=== PATIENT | male | born 1980 | race Caucasian/White ===

== ENCOUNTER 2016-12-10 15:34 | Emergency (ER) | payer MEDICAID, OTHER ==
[2016-12-10] MEDS ORDERED: Fluorescein Sodium TOPICAL* 1 MG TEST OPHTHALMIC ONE (15:37)
[2016-12-10] MEDS ORDERED: Tetracaine 0.5% OPTH.SOL 4 ML* 1 DROP BTL LEFT EYE ONE (15:38)
[2016-12-10 15:43] VITALS: BP 146/78
[2016-12-10] MEDS ORDERED: Tetan/Diph/Pertus SYR(Tdap)* 0.5 ML SYR(BOOSTRIX) use SYR IM ONE (16:07)
--- NOTE | 2016-12-24 22:01 | UC ---
Eye Complaint HPI - HPI Summary HPI Summary: 36 year old male presents with complains of getting a piece of plastic in his left eye. - History of Current Complaint Chief Complaint: UCEye Stated Complaint: FOREIGN BODY LEFT EYE Time Seen by Provider: 12/10/16 15:37 Hx Obtained From: Patient Onset/Duration: Sudden Onset Severity Initially: Moderate Severity Currently: Moderate Pain Intensity: 2 Pain Scale Used: 0-10 Numeric - 5 - Allergies/Home Medications Allergies/Adverse Reactions: Allergies Allergy/AdvReac Type Severity Reaction Status Date / Time No Known Allergies Allergy Verified 12/10/16 20:02 PMH/Surg Hx/FS Hx/Imm Hx Previously Healthy: Yes - Surgical History Surgical History: Yes Surgery Procedure, Year, and Place: LEFT FOOT SURGERY, METAL KARLOS, PLATE AND SCREWS. 2008, [facility] - Social History Alcohol Use: Rare Substance Use Type: Marijuana Smoking Status (MU): Heavy Every Day Tobacco Smoker Type: Cigarettes Amount Used/How Often: 1/2 - 1 PPD Length of Time of Smoking/Using Tobacco: 20 Years Have You Smoked in the Last Year: Yes Household Exposure Type: Cigarettes - Immunization History Most Recent Influenza Vaccination: Not the Season Review of Systems Constitutional: Negative Skin: Negative Eyes: Eye Redness ENT: Negative Respiratory: Negative Cardiovascular: Negative Gastrointestinal: Negative Genitourinary: Negative Motor: Negative Neurovascular: Negative Musculoskeletal: Negative Neurological: Negative Psychological: Negative All Other Systems Reviewed And Are Negative: Yes Physical Exam Triage Information Reviewed: Yes Appearance: Well-Appearing Vital Signs: Initial Vital Signs Temp 36.8 C 12/10/16 15:36 Pulse 71 12/10/16 15:36 Resp 16 12/10/16 15:36 BP 146/78 12/10/16 15:36 Pulse Ox 98 12/10/16 15:36 Vital Signs Reviewed: Yes Eyes: Positive: Conjunctiva Inflamed, Discharge ENT Exam: Normal Dental Exam: Normal Neck exam: Normal Neck: Positive: 1 Respiratory Exam: Normal Cardiovascular Exam: Normal Abdominal Exam: Normal Musculoskeletal Exam: Normal Neurological Exam: Normal Psychological Exam: Normal Skin Exam: Normal Procedures - Eye Procedure Alcaine Drops Administered: Yes - tetracaine Eye FB Removal: removal w/ needle Eye Irrigated w/ Saline (ccs): 30 - removal of a piece of plastic from left eye Antibiotic Ointment/Drps Admin: left eye - outpatient rx Eye Complaint Course/Dx - Differential Dx/Diagnosis Differential Diagnosis/HQI/PQRI: Foreign Body Provider Diagnoses: left eye foreign body removal Discharge - Discharge Plan Condition: Stable Disposition: HOME Prescriptions: Amoxicillin PO (*) [Amoxicillin 875 MG (*)] 875 mg PO BID #20 tab Ciprofloxacin 0.3% OPTH.MYRNA* [Cipro 0.3% Opth*] 2 drop LEFT EYE Q4H #1 btl Patient Education Materials: Corneal Abrasion (ED), Eye Foreign Body (ED) Referrals: Bruce Jurado MD [Medical Doctor] - No Primary Care Phys,NOPCP [Medical Doctor] -
== END 2016-12-10 16:25 | disposition home or self-care (01) ==
LOC: UCCORT 15:34
DX: T15.12XA Foreign body in conjunctival sac, left eye, initial encounter (principal); X58.XXXA Exposure to other specified factors, initial encounter; Y93.9 Activity, unspecified; Y92.9 Unspecified place or not applicable; Z23 Encounter for immunization; F12.90 Cannabis use, unspecified, uncomplicated; F17.210 Nicotine dependence, cigarettes, uncomplicated
CPT/HCPCS: 67938; 90471; 90715; 99212; A9270-GY; G0463

== ENCOUNTER 2016-12-10 19:50 | Emergency (ER) | payer OTHER ==
[2016-12-10] MEDS ORDERED: predniSONE TAB* 20 MG PO ONE (19:57)
[2016-12-10 20:02] VITALS: BP 146/77
--- NOTE | 2016-12-10 20:04 | UC ---
Eye Complaint HPI - HPI Summary HPI Summary: 36 YEAR OLD GENTLEMAN RETURNS WITH COMPLAINS OF POSSIBLE A PIECE OF FOREIGN BODY REMAINING IN HIS EYE AFTER WE TOOK OUT A PIECE OF PLASTIC ATTACHED TO HIS LEFT CORNEA. THE EYE WAS EXAMINED IMMEDIATELY AND GPC WAS SEEN ON HIS UPPER LEFT EYELID . - History of Current Complaint Chief Complaint: UCEye Stated Complaint: FOREIGN BODY LEFT EYE Time Seen by Provider: 12/10/16 20:03 Hx Obtained From: Patient Onset/Duration: Sudden Onset Timing: Constant Severity Initially: Moderate Severity Currently: Moderate Pain Scale Used: 0-10 Numeric - 1 - Allergies/Home Medications Allergies/Adverse Reactions: Allergies Allergy/AdvReac Type Severity Reaction Status Date / Time No Known Allergies Allergy Verified 12/10/16 20:02 PMH/Surg Hx/FS Hx/Imm Hx Previously Healthy: Yes - Surgical History Surgical History: Yes Surgery Procedure, Year, and Place: LEFT FOOT SURGERY, METAL KARLOS, PLATE AND SCREWS. 2008, [facility] - Social History Alcohol Use: Rare Substance Use Type: Marijuana Smoking Status (MU): Heavy Every Day Tobacco Smoker Type: Cigarettes Amount Used/How Often: 1/2 - 1 PPD Length of Time of Smoking/Using Tobacco: 20 Years Have You Smoked in the Last Year: Yes Household Exposure Type: Cigarettes - Immunization History Most Recent Influenza Vaccination: Not the 2014/2015 Season Review of Systems Constitutional: Negative Skin: Negative Eyes: Drainage, Eye Redness, Other - LEFT UPPER EYELID GPC ENT: Negative Respiratory: Negative Cardiovascular: Negative Gastrointestinal: Negative Genitourinary: Negative Motor: Negative Neurovascular: Negative Musculoskeletal: Negative Neurological: Negative Psychological: Negative All Other Systems Reviewed And Are Negative: Yes Physical Exam Triage Information Reviewed: Yes Vital Signs: Initial Vital Signs Temp 36.4 C 12/10/16 19:54 Pulse 68 12/10/16 19:54 Resp 16 12/10/16 19:54 BP 146/77 12/10/16 19:54 Pulse Ox 98 12/10/16 19:54 Vital Signs Reviewed: Yes Eyes: Positive: Conjunctiva Inflamed, Other: - LEFT UPPER EYELID GPC ENT Exam: Normal Dental Exam: Normal Neck exam: Normal Neck: Positive: 1 Respiratory Exam: Normal Cardiovascular Exam: Normal Abdominal Exam: Normal Musculoskeletal Exam: Normal Neurological Exam: Normal Psychological Exam: Normal Skin Exam: Normal Eye Complaint Course/Dx - Course Course Of Treatment: PIECE OF PLASTIC WAS REMOVED FROM HIS LEFT EYE EALIER. PATIENT FELT LIKE SOME PLASTIC MAY BE STILL IN HIS EYE BUT ON EXAMINATION THE FOREIGN BODY SENSATION WAS SECONDARY TO GPC. THE SENSATION WAS REPLICATED IN THE IDENTICAL SPOT ON HIS LEFT UPPER EYELID. - Differential Dx/Diagnosis Provider Diagnoses: LEFT UPPER EYELID GPC Discharge - Discharge Plan Condition: Stable Disposition: HOME Prescriptions: Methylprednisolone [Medrol Dosepak 4 MG*] 4 mg PO .SEE RICKY INSTRUCTION #21 tab Patient Education Materials: Conjunctivitis (ED) Referrals: WOODY Mcdonald [Primary Care Provider] -
== END 2016-12-10 20:09 | disposition home or self-care (01) ==
LOC: UCCORT 19:50
DX: H10.412 Chronic giant papillary conjunctivitis, left eye (principal); F17.210 Nicotine dependence, cigarettes, uncomplicated
CPT/HCPCS: 99212; G0463; J7512

== ENCOUNTER 2017-03-06 12:10 | Emergency (ER) | payer OTHER ==
[2017-03-06 13:00] VITALS: BP 121/60
--- NOTE | 2017-03-06 14:07 | UC ---
Throat Pain/Nasal Esteban HPI - HPI Summary HPI Summary: 36 yo male with mild sore throat since this AM no f/c no uri symptoms hx tonsillectomy - History of Current Complaint Chief Complaint: UCGeneralIllness Stated Complaint: SORE THROAT Time Seen by Provider: 03/06/17 13:31 Hx Obtained From: Patient Onset/Duration: Gradual Onset, Lasting Hours Severity: Mild Pain Intensity: 2 Pain Scale Used: 0-10 Numeric Cough: None Associated Signs & Symptoms: Positive: Negative Related History: Smoking, Prior ENT Surgery, T & A - Allergies/Home Medications Allergies/Adverse Reactions: Allergies Allergy/AdvReac Type Severity Reaction Status Date / Time No Known Allergies Allergy Verified 03/06/17 13:00 Home Medications: Home Medications NK [No Home Medications Reported] 03/06/17 [History Confirmed 03/06/17] PMH/Surg Hx/FS Hx/Imm Hx Previously Healthy: Yes - Surgical History Surgical History: Yes Surgery Procedure, Year, and Place: LEFT FOOT SURGERY, METAL KARLOS, PLATE AND SCREWS. [facility], [facility] - Family History Known Family History: Positive: Cardiac Disease Negative: Hypertension, Diabetes - Social History Alcohol Use: Rare Substance Use Type: Marijuana Smoking Status (MU): Heavy Every Day Tobacco Smoker Type: Cigarettes Amount Used/How Often: 1/2 - 1 PPD Length of Time of Smoking/Using Tobacco: 20 Years Have You Smoked in the Last Year: Yes Household Exposure Type: Cigarettes Cessation Counseling: Patient Advised to Stop - Immunization History Most Recent Influenza Vaccination: Not the Season Review of Systems Constitutional: Negative Skin: Negative Eyes: Negative ENT: Sore Throat Respiratory: Negative Cardiovascular: Negative Gastrointestinal: Negative Genitourinary: Negative Motor: Negative Neurovascular: Negative Musculoskeletal: Negative Neurological: Negative Psychological: Negative Is Patient Immunocompromised?: No All Other Systems Reviewed And Are Negative: Yes Physical Exam Triage Information Reviewed: Yes Appearance: Well-Appearing, No Pain Distress, Well-Nourished Vital Signs: Initial Vital Signs Temp 97.9 F 03/06/17 12:57 Pulse 65 03/06/17 12:57 Resp 14 03/06/17 12:57 BP 121/60 03/06/17 12:57 Pulse Ox 97 03/06/17 12:57 Vital Signs Reviewed: Yes Eyes: Positive: Conjunctiva Clear ENT: Positive: Hearing grossly normal, Pharyngeal erythema, TMs normal, Uvula midline. Negative: Nasal congestion, Nasal drainage, Tonsillar swelling, Tonsillar exudate, Trismus, Muffled voice, Hoarse voice, Dental tenderness, Sinus tenderness Neck: Positive: Supple, Nontender Respiratory: Positive: No respiratory distress, No accessory muscle use, Wheezing - slight Cardiovascular: Positive: RRR, No Murmur Diagnostics - Laboratory Diagnostic Studies Completed/Ordered: strep (-) Throat Pain/Nasal Course/Dx - Differential Dx/Diagnosis Provider Diagnoses: pharyngitis. tobacco use Discharge - Discharge Plan Condition: Stable Disposition: HOME Patient Education Materials: Pharyngitis (ED) Referrals: WOODY Mcdonald [Primary Care Provider] - If Needed Additional Instructions: strep test negative recheck for new symptoms or if not better in 4 days
== END 2017-03-06 14:09 | disposition home or self-care (01) ==
LOC: UCCORT 12:10
DX: J02.9 Acute pharyngitis, unspecified (principal); Z72.0 Tobacco use
CPT/HCPCS: 87651; 99211; G0463

== ENCOUNTER 2017-09-04 11:06 | Emergency (ER) | payer OTHER ==
[2017-09-04 11:31] VITALS: BP 136/77
--- NOTE | 2017-09-04 12:25 | UC ---
UC Dental HPI - HPI Summary HPI Summary: Patient had a transient episode of right ear pain that radiated into his jaw yesterday. Seems to be resolved today but his family was concerned because of past history is with dental infections and wanted to get checked. - History of Current Complaint Hx Obtained From: Patient Onset/Duration: Sudden Onset, Resolved Aggravating Factor(s): Nothing Alleviating Factor(s): Nothing <Veena Herbert - Last Filed: 09/04/17 12:27> <Kyleigh Weldon - Last Filed: 09/04/17 12:39> - History of Current Complaint Chief Complaint: UCDentalProblem Stated Complaint: DENTAL PAIN Time Seen by Provider: 09/04/17 12:14 - Allergies/Home Medications Allergies/Adverse Reactions: Allergies Allergy/AdvReac Type Severity Reaction Status Date / Time No Known Allergies Allergy Verified 09/04/17 11:28 Home Medications: Home Medications Ibuprofen TAB* [Advil TAB*] 1,000 mg PO Q8H PRN 09/04/17 [History Confirmed 03/24] Multivitamins/Minerals TAB* [Theragran/minerals TAB*] 1 tab PO DAILY 09/04/17 [ History Confirmed 09/04/17] PMH/Surg Hx/FS Hx/Imm Hx Previously Healthy: Yes - Surgical History Surgical History: Yes Surgery Procedure, Year, and Place: LEFT FOOT SURGERY, METAL KARLOS, PLATE AND SCREWS. 2008, [facility] - Family History Known Family History: Positive: Cardiac Disease Negative: Hypertension, Diabetes - Social History Occupation: Employed Full-time Lives: With Family Alcohol Use: Rare Substance Use Type: Marijuana Substance Use Comment - Amount & Last Used: occasional Smoking Status (MU): Heavy Every Day Tobacco Smoker Type: Cigarettes Amount Used/How Often: 1/2 - 1 PPD Length of Time of Smoking/Using Tobacco: 20 Years Have You Smoked in the Last Year: Yes Household Exposure Type: Cigarettes Cessation Counseling: Patient Advised to Stop - Immunization History Most Recent Influenza Vaccination: Not the 2014/2015 Season <Veena Herbert - Last Filed: 09/04/17 12:27> Review of Systems Constitutional: Negative Skin: Negative Eyes: Negative ENT: Negative Respiratory: Negative Cardiovascular: Negative Gastrointestinal: Negative Genitourinary: Negative Motor: Negative Neurovascular: Negative Musculoskeletal: Negative Neurological: Negative Psychological: Negative Is Patient Immunocompromised?: No All Other Systems Reviewed And Are Negative: Yes <Veena Herbert - Last Filed: 09/04/17 12:27> Physical Exam Triage Information Reviewed: Yes Appearance: Well-Appearing, No Pain Distress, Well-Nourished Vital Signs: Initial Vital Signs Temp 98.7 F 09/04/17 11:25 Pulse 73 09/04/17 11:25 Resp 17 09/04/17 11:25 BP 136/77 09/04/17 11:25 Pulse Ox 98 09/04/17 11:25 Vital Signs Reviewed: Yes Eye Exam: Normal Eyes: Positive: Conjunctiva Clear ENT Exam: Normal ENT: Positive: Normal ENT inspection, Hearing grossly normal, Pharynx normal, TMs normal, Uvula midline, Other. Negative: Nasal congestion, Trismus, Muffled voice, Hoarse voice, Dental tenderness, Sinus tenderness Dental Exam: Normal Neck exam: Normal Neck: Positive: Supple Respiratory Exam: Normal Respiratory: Positive: Chest non-tender, Lungs clear, Normal breath sounds, No respiratory distress, No accessory muscle use Cardiovascular Exam: Normal Cardiovascular: Positive: RRR, No Murmur, Pulses Normal, Brisk Capillary Refill Musculoskeletal Exam: Normal Musculoskeletal: Positive: Strength Intact, ROM Intact, No Edema Neurological Exam: Normal Neurological: Positive: Alert, Muscle Tone Normal Psychological Exam: Normal Skin Exam: Normal <Veena Herbert - Last Filed: 09/04/17 12:27> Vital Signs: Initial Vital Signs Temp 98.7 F 09/04/17 11:25 Pulse 73 09/04/17 11:25 Resp 17 09/04/17 11:25 BP 136/77 09/04/17 11:25 Pulse Ox 98 09/04/17 11:25 <Kyleigh Weldon - Last Filed: 09/04/17 12:39> Dental Complaint Course/Dx - Course Course Of Treatment: follow with pcp prn - Differential Dx/Diagnosis Provider Diagnoses: resolved right jaw/neck pain <Veena Herbert - Last Filed: 09/04/17 12:27> Discharge - Sign-Out/Discharge Documenting (check all that apply): Discharge/Admit/Transfer - Billing Disposition and Condition Condition: STABLE Disposition: Home <Veena Herbert - Last Filed: 09/04/17 12:27> - Billing Disposition and Condition Condition: STABLE Disposition: Home <Kyleigh Weldon - Last Filed: 09/04/17 12:39> - Discharge Plan Condition: Stable Disposition: HOME Patient Education Materials: Earache (ED) Referrals: WOODY Mcdonald [Primary Care Provider] - If Needed Attestation Statement User Type: Provider - I was available for consult. This patient was seen by the ASHLEE. The patient was not presented to, seen by, or examined by me. -Rafaelj <Kyleigh Weldon - Last Filed: 09/04/17 12:39>
== END 2017-09-04 12:32 | disposition home or self-care (01) ==
LOC: UCCORT 11:06
DX: R68.84 Jaw pain (principal); M54.2 Cervicalgia; K08.89 Other specified disorders of teeth and supporting structures; F17.210 Nicotine dependence, cigarettes, uncomplicated
CPT/HCPCS: 99211; G0463

== ENCOUNTER 2018-09-21 08:58 | Emergency (ER) | payer OTHER ==
[2018-09-21 09:14] VITALS: BP 137/78
--- NOTE | 2018-09-21 09:31 | ED ---
Throat Pain/Nasal Congestion - HPI Summary HPI Summary: 37 yr old with the complaint of left ear pain, drainage, and onset of symptoms over the past three to four days. Symptoms are moderate. No associated fever. He has had some drainage from the left ear. He has muffled sound to his hearing. - History of Current Complaint Chief Complaint: UCEar Time Seen by Provider: 09/21/18 09:16 - Allergies/Home Medications Allergies/Adverse Reactions: Allergies Allergy/AdvReac Type Severity Reaction Status Date / Time No Known Allergies Allergy Verified 09/21/18 09:08 PMH/Surg Hx/FS Hx/Imm Hx - Surgical History Surgery Procedure, Year, and Place: LEFT FOOT SURGERY, METAL KARLOS, PLATE AND SCREWS. 2008, [facility] Infectious Disease History: No Infectious Disease History: Denies: Traveled Outside the [place] in Last 30 Days - Family History Known Family History: Positive: Cardiac Disease Negative: Hypertension, Diabetes - Social History Occupation: Employed Full-time Alcohol Use: Rare Substance Use Type: Reports: Marijuana Substance Use Comment - Amount & Last Used: occasional Smoking Status (MU): Heavy Every Day Tobacco Smoker Type: Cigarettes Amount Used/How Often: 1/2 - 1 PPD Length of Time of Smoking/Using Tobacco: 20 Years Have You Smoked in the Last Year: Yes Review of Systems Constitutional: Negative Positive: Ear Ache All Other Systems Reviewed And Are Negative: Yes Physical Exam Triage Information Reviewed: Yes Vital Signs On Initial Exam: Initial Vitals Temp Pulse Resp BP Pulse Ox 97.1 F 79 20 137/78 100 09/21/18 09:09 09/21/18 09:09 09/21/18 09:09 09/21/18 09:09 09/21/18 09:09 Vital Signs Reviewed: Yes Appearance: Positive: Well-Appearing, No Pain Distress Skin: Positive: Warm, Skin Color Reflects Adequate Perfusion Head/Face: Positive: Normal Head/Face Inspection Eyes: Positive: EOMI, DAVE ENT: Positive: Other - left tm with erythema. Left external canal with exudate and erythema. The TM is not perforated. Neck: Positive: Nontender, No Lymphadenopathy Respiratory/Lung Sounds: Positive: Clear to Auscultation, Breath Sounds Present Cardiovascular: Positive: RRR. Negative: Murmur Abdomen Description: Negative: Distended Musculoskeletal: Positive: Strength/ROM Intact Neurological: Positive: Sensory/Motor Intact, Alert, Oriented to Person Place, Time, CN Intact II-III, Normal Gait, Speech Normal Psychiatric: Positive: Normal - [place] Coma Scale Best Eye Response: 4 - Spontaneous Best Motor Response: 6 - Obeys Commands Best Verbal Response: 5 - Oriented Coma Scale Total: 15 Diagnostics - Vital Signs Vital Signs Temp Pulse Resp BP Pulse Ox 09/21/18 09:09 97.1 F 79 20 137/78 100 - Laboratory Lab Statement: Any lab studies that have been ordered have been reviewed, and results considered in the medical decision making process. EENT Course/Dx - Course Course Of Treatment: 37 yr old with left otitis externa and media. Rx with ciprodex and augmentin - Diagnoses Provider Diagnoses: Left otitis media, Left otitis externa Discharge - Sign-Out/Discharge Documenting (check all that apply): Patient Departure All imaging exams completed and their final reports reviewed: No Studies - Discharge Plan Condition: Good Disposition: HOME Prescriptions: Amoxicillin/Clavulanate TAB* [Augmentin TAB 875*] 875 mg PO BID #20 tab Ciproflox/Dexameth OTIC.SUSP* [Ciprodex OTIC.SUSP*] 4 drop OTIC BID #1 btl Patient Education Materials: Otitis Externa (ED), Ear Infection (ED) Referrals: WOODY Mcdonald [Primary Care Provider] - 2 Days - Billing Disposition and Condition Condition: GOOD Disposition: Home
== END 2018-09-21 09:42 | disposition home or self-care (01) ==
LOC: UCCORT 08:58
DX: H66.92 Otitis media, unspecified, left ear (principal); H60.92 Unspecified otitis externa, left ear; F17.210 Nicotine dependence, cigarettes, uncomplicated
CPT/HCPCS: 99212; G0463